=== PATIENT | male | born 1935 | race Two or more races ===

== ENCOUNTER 2024-07-12 09:37 | Emergency (ER) | payer OTHER ==
[~2024-07-12] VITALS: Ht 175.3 cm; Wt 90.7 kg
[2024-07-12] MEDS ORDERED: IRBESARTAN300 MG PO (10:00)
== END 2024-07-12 13:49 | disposition home or self-care (01) ==
LOC: ER 09:37
DX: S50.811A Abrasion of right forearm, initial encounter (principal); Y08.89XA Assault by other specified means, initial encounter; Y93.89 Activity, other specified; Y92.488 Other paved roadways as the place of occurrence of the external cause; S49.81XA Other specified injuries of right shoulder and upper arm, initial encounter; S89.81XA Other specified injuries of right lower leg, initial encounter; S09.8XXA Other specified injuries of head, initial encounter; I10 Essential (primary) hypertension